=== PATIENT | female | born 1990 | race Caucasian/White ===

== ENCOUNTER 2017-01-24 12:23 | Inpatient (IN) | payer BC ==
[2017-01-24] MEDS ORDERED: Nalbuphine 20 MG/1 ML Amp IVPUSH PRN (14:31)
[2017-01-24] MEDS ORDERED: Sodium Chloride 0.9% 10 ML Syringe FLUSH PRN (14:31)
[2017-01-24] MEDS ORDERED: Ondansetron 4 MG/2 ML SDV IVPUSH PRN ×2 (14:31→15:21)
[2017-01-24] MEDS ORDERED: Oxytocin/Lactated Ringers 10 UNIT/1,000 ML BAG IV SCH (14:45)
--- NOTE | 2017-01-24 14:48 | PCM.PREANE ---
Preanesthetic Assessment - Procedure Proposed Procedure: MAR - Anesthesia/Transfusion/Family Hx Anesthesia History: Prior Anesthesia Without Reaction Family History of Anesthesia Reaction: No Transfusion History: No Prior Transfusion(s) Intubation History: Unknown - Review of Systems General: No Symptoms Pulmonary: No Symptoms Cardiovascular: No Symptoms Gastrointestinal: Other (GERD) Neurological: No Symptoms Other: Reports: None - Physical Assessment NPO Status Date: 01/24/17 NPO Status Time: 14:30 Respiratory Rate: 18 Vital Signs: Last Vital Signs Temp 36.7 C 01/24/17 13:30 Pulse 92 01/24/17 13:30 Resp 18 01/24/17 13:30 BP 120/77 01/24/17 13:30 Pulse Ox Height: 1.55 m Weight: 89.176 kg ASA Class: 2 Mental Status: Alert & Oriented x3 Airway Class: Mallampati = 1 Dentition: Reports: Normal Dentition Thyro-Mental Finger Breadths: 3 ROM/Head Extension: Full Lungs: Clear to Auscultation, Normal Respiratory Effort Cardiovascular: Regular Rate, Regular Rhythm - Allergies Allergies/Adverse Reactions: Allergies Allergy/AdvReac Type Severity Reaction Status Date / Time No Known Allergies Allergy Verified 11/05/16 19:31 - Blood Blood Available: No Product(s) Available: None - Anesthesia Plan Pre-Op Medication Ordered: None - Acknowledgements Anesthesia Type Planned: Epidural Pt an Appropriate Candidate for the Planned Anesthesia: Yes Alternatives and Risks of Anesthesia Discussed w Pt/Guardian: Yes Pt/Guardian Understands and Agrees with Anesthesia Plan: Yes PreAnesthesia Questionnaire Other HEENT History: wears glasses 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: - Past Surgical History HEENT Surgical History: Reports: Oral Surgery, Tonsillectomy - SUBSTANCE USE Smoking Status *Q: Never Smoker Second Hand Smoke Exposure: No Recreational Drug Use History: No - HOME MEDS Home Medications: Home Meds PNV95/Ferrous Fumarate/FA [ Tablet] 1 tab PO DAILY 01/24/17 [History] - CURRENT (IN HOUSE) MEDS Current Meds: Current Medications Lactated Ringer's (Ringers, Lactated) 1,000 mls @ 100 mls/hr IV ASDIRECTED SKIP Oxytocin/Lactated Ringer's (Pitocin In Lr 10 Units/1,000 Ml) 10 unit in 1,000 mls @ 500 mls/hr IV .CONTINUOUS SKIP Nalbuphine HCl (Nubain) 10 mg IVPUSH Q2H PRN PRN Reason: Pain (moderate 4-6) Ondansetron HCl (Zofran) 4 mg IVPUSH Q4H PRN PRN Reason: Nausea/Vomiting Sodium Chloride (Saline Flush) 10 ml FLUSH ASDIRECTED PRN PRN Reason: Keep Vein Open
[2017-01-24] MEDS ORDERED: ePHEDrine 50 MG/ML SDV IVPUSH PRN (15:21)
[2017-01-24] MEDS ORDERED: diphenhydrAMINE 50 MG/ML SDV IVPUSH PRN (15:21)
[2017-01-24] MEDS ORDERED: fentaNYL 100 MCG/2 ML SDV EPIDUR PRN (15:21)
[2017-01-24] MEDS: Lactated Ringers 1,000 ML IV SCH ×3 (15:56→17:55)
[2017-01-24] MEDS: Bupivacaine/fentaNYL/NS 100 ML Bag EPIDUR SCH ×2 (16:51→22:54)
[2017-01-25] MEDS: Bupivacaine/fentaNYL/NS 100 ML Bag EPIDUR SCH (08:15)
[2017-01-25] MEDS ORDERED: Morphine PF 1 MG/ML Amp ONE (15:04)
[2017-01-25] MEDS ORDERED: Bupivacaine 0.5% 30 ML SDV ONE (15:04)
[2017-01-25] MEDS ORDERED: Citric Acid/Sodium Citrate Solution 30 ML Cup ONE (15:26)
[2017-01-25] MEDS ORDERED: Metoclopramide 10 MG/2 ML SDV ONE (15:26)
[2017-01-25] MEDS ORDERED: Metoclopramide 10 MG/2 ML SDV IVPUSH ONE (15:30)
[2017-01-25] MEDS ORDERED: ceFAZolin 2 GM in Premix Bag 1 BAG IV ONE (15:30)
[2017-01-25] MEDS ORDERED: Citric Acid/Sodium Citrate Solution 30 ML Cup PO ONE (15:30)
[2017-01-25] MEDS ORDERED: Oxytocin/Lactated Ringers 10 UNIT/1,000 ML BAG IV SCH (15:30)
[2017-01-25] MEDS ORDERED: Phenylephrine 1% 10 MG/ML SDV ONE (15:33)
[2017-01-25] MEDS ORDERED: Ketorolac 30 MG/ML SDV ONE (15:33)
[2017-01-25] MEDS ORDERED: Lidocaine 2% with EPINEPHrine 1:200,000 20 ML SDV ONE (15:33)
[2017-01-25] MEDS ORDERED: Lactated Ringers 1,000 ML ONE (15:33)
[2017-01-25] MEDS ORDERED: Oxytocin 10 Units/1 ML SDV ONE (15:33)
[2017-01-25] MEDS ORDERED: fentaNYL 100 MCG/2 ML SDV ONE (15:33)
[2017-01-25] MEDS ORDERED: ceFAZolin 1 GM Vial ONE (15:33)
[2017-01-25] MEDS ORDERED: Ondansetron 4 MG/2 ML SDV ONE (15:33)
[2017-01-25] MEDS: Lactated Ringers 1,000 ML IV SCH ×2 (15:35→21:14)
[2017-01-25] MEDS ORDERED: Ondansetron 4 MG/2 ML SDV IVPUSH PRN (15:59)
[2017-01-25] MEDS ORDERED: Meperidine PF 50 MG/ML Syringe IVPUSH PRN (15:59)
[2017-01-25] MEDS ORDERED: HYDROmorphone 0.5 MG/0.5 ML Syringe IVPUSH PRN (15:59)
[2017-01-25] MEDS ORDERED: ePHEDrine 50 MG/ML SDV IVPUSH PRN ×2 (15:59→17:22)
[2017-01-25] MEDS ORDERED: fentaNYL 100 MCG/2 ML SDV IVPUSH PRN (15:59)
[2017-01-25] MEDS ORDERED: diphenhydrAMINE 50 MG/ML SDV IVPUSH PRN ×2 (15:59→17:22)
[2017-01-25] MEDS ORDERED: Phenylephrine 1 MG in Sodium Chloride 0.9% 10 ML IV SCH (16:00)
--- NOTE | 2017-01-25 16:40 | PCM.LDHP ---
L&D History of Present Illness - General Date of Service: 01/24/17 Admit Problem/Dx: Patient Status Order with Admit Dx/Problem 01/24/17 14:31 Patient Status [ADT] Routine Admission Diagnosis/Problem Admission Diagnosis/Problem Source of Information: Patient - History of Present Illness Introduction:: 27 year old female at 40 1/7 here with SROM Pain Score: 10 Improves with: Reports: None Worsens with: Reports: None Associated Symptoms: Reports: N - Related Data Allergies/Adverse Reactions: Allergies Allergy/AdvReac Type Severity Reaction Status Date / Time No Known Allergies Allergy Verified 11/05/16 19:31 Home Medications: Home Meds PNV95/Ferrous Fumarate/FA [ Tablet] 1 tab PO DAILY 01/24/17 [History] Past Medical History 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 HEENT History: wears 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: - Past Surgical History HEENT Surgical History: Reports: Oral Surgery, Tonsillectomy Social & Family History - Family History Family Medical History: Noncontributory - Tobacco Use Smoking Status *Q: Never Smoker Second Hand Smoke Exposure: No - Recreational Drug Use Recreational Drug Use: No H&P Review of Systems - Review of Systems: Review Of Systems: See Below General: Reports: No Symptoms HEENT: Reports: No Symptoms Pulmonary: Reports: No Symptoms Cardiovascular: Reports: No Symptoms Gastrointestinal: Reports: No Symptoms Genitourinary: Reports: No Symptoms Musculoskeletal: Reports: No Symptoms Skin: Reports: No Symptoms Psychiatric: Reports: No Symptoms Neurological: Reports: No Symptoms Hematologic/Lymphatic: Reports: No Symptoms Immunologic: Reports: No Symptoms L&D Exam - Exam Exam: See Below - Vital Signs Vital Signs: Last Vital Signs Temp 36.7 C 01/24/17 13:30 Pulse 92 01/24/17 13:30 Resp 18 01/24/17 14:48 BP 120/77 01/24/17 13:30 Pulse Ox Weight: 89.176 kg - OB Specific Contraction Intensity: Moderate Movement: Active Heart Rate (FHR) Variability: Moderate (6-25 bmp) Presentation: Vertex - Moon Score Moon Score Cervix Position: Midposition Moon Score Consistency: Soft Moon Score Effacement: 51-70% Moon Score Dilation: 3-4 cm Moon Score Infant's Station: -2 Moon Score Total: 8 - Exam General: Alert, Oriented HEENT: PERRLA, Conjunctiva Clear, EACs Clear, EOMI, Hearing Intact, Mucosa Moist & [place], Nares Patent, Normal Nasal Septum, Posterior Pharynx Clear, TMs Clear Neck: Supple, Trachea Midline Lungs: Clear to Auscultation, Normal Respiratory Effort Cardiovascular: Regular Rate, Regular Rhythm GI/Abdominal Exam: Normal Bowel Sounds, Soft, Non-Tender, No Organomegaly, No Distention, No Abnormal Bruit, No Mass, Pelvis Stable Rectal Exam: Normal Exam, Normal Rectal Tone Genitourinary: Normal external exam, Normal bimanual exam, Normal speculum exam Back Exam: Normal Inspection, Full Range of Motion Extremities: Normal Inspection, Normal Range of Motion, Non-Tender, No Pedal Edema, Normal Capillary Refill Skin: Warm, Dry, Intact Neurological: Cranial Nerves Intact, Reflexes Equal Bilateral Psychiatric: Alert, Normal Affect, Normal Mood - Patient Data Lab Results Last 24 hrs: Laboratory Results - last 24 hr 01/24/17 Range/Units 15:00 WBC 15.64 H (3.98-10.04) K/mm3 RBC 4.49 (3.98-5.22) M/mm3 Hgb 13.3 (11.2-15.7) gm/L Hct 39.2 (34.1-44.9) % MCV 87.3 (79.4-94.8) fl MCH 29.6 (25.6-32.2) pg MCHC 33.9 (32.2-35.5) g/dl RDW Std Deviation 43.6 (36.4-46.3) fL Plt Count 281 (182-369) K/mm3 MPV 9.9 (9.4-12.3) fl Neut % (Auto) 78.6 H (34.0-71.1) % Lymph % (Auto) 12.4 L (19.3-51.7) % Mineral % (Auto) 6.5 (4.7-12.5) % Eos % (Auto) 2.0 (0.7-5.8) Baso % (Auto) 0.1 (0.1-1.2) % Neut # (Auto) 12.28 H (1.56-6.13) K/mm3 Lymph # (Auto) 1.94 (1.18-3.74) K/mm3 Mineral # (Auto) 1.02 H (0.24-0.36) K/mm3 Eos # (Auto) 0.31 (0.04-0.36) K/mm3 Baso # (Auto) 0.02 (0.01-0.08) K/mm3 Result Diagrams: 01/24/17 15:00 Problem List Initiated/Reviewed/Updated: Yes Orders Last 24hrs: Active Orders 24 hr Category Date Time Status Patient Status [ADT] Routine ADT 01/24/17 14:31 Active Activity as Tolerated [RC] PFP Care 01/24/17 14:31 Active Communication Order [RC] ASDIRECTED Care 01/24/17 14:31 Active Heart Tones [RC] ASDIRECTED Care 01/24/17 14:32 Active Notify Provider [RC] PFP Care 01/24/17 14:31 Active Notify Provider [RC] PRN Care 01/24/17 14:31 Active Peripheral IV Care [RC] . DIRECTED Care 01/24/17 14:32 Active Pump Management, Intrathecal [RC] ASDIRECTED Care 01/24/17 14:31 Active Urinary Catheter Assessment [RC] ASDIRECTED Care 01/24/17 14:31 Active Vital Signs [RC] PER UNIT ROUTINE Care 01/24/17 14:31 Active Bupivacaine/fentaNYL/NS [fentaNYL/Bupivacaine/NS 2 MCG- Med 01/24/17 15:30 Active 0.125% 100 ML] 100 ml EPIDUR ASDIRECTED Lactated Ringers [Ringers, Lactated] 1,000 ml Med 01/24/17 14:45 Active IV ASDIRECTED Nalbuphine [Nubain] Med 01/24/17 14:31 Active 10 mg IVPUSH Q2H PRN Ondansetron [Zofran] Med 01/24/17 15:21 Active 4 mg IVPUSH ONETIME PRN Ondansetron [Zofran] Med 01/24/17 14:31 Active 4 mg IVPUSH Q4H PRN Oxytocin [Pitocin] 10 unit Med 01/24/17 19:15 Active Lactated Ringers [Ringers, Lactated] 1,000 ml IV TITRATE Oxytocin/Lactated Ringers [Pitocin in LR 10 Units/1,000 Med 01/24/17 14:45 Active ML] 10 unit in 1,000 ml IV .CONTINUOUS Sodium Chloride 0.9% [Saline Flush] Med 01/24/17 14:31 Active 10 ml FLUSH ASDIRECTED PRN diphenhydrAMINE [Benadryl] Med 01/24/17 15:21 Active 25 mg IVPUSH Q6H PRN ePHEDrine [ePHEDrine Sulfate] Med 01/24/17 15:21 Active 5 mg IVPUSH ASDIRECTED PRN fentaNYL [Sublimaze] Med 01/24/17 15:21 Active 100 mcg EPIDUR Q3H PRN Electronic Heart Tones Ext w TOCO [WOMSER] Oth 01/24/17 14:31 Ordered Routine Electronic Heart Tones Internal [WOMSER] Per Unit Oth 01/24/17 14:31 Ordered Routine Peripheral IV Insertion Adult [OM.PC] Routine Ot 01/24/17 14:31 Ordered Resuscitation Status Routine Resus Stat 01/24/17 14:31 Ordered Medication Orders Diphenhydramine HCl (Benadryl) 25 mg IVPUSH Q6H PRN PRN Reason: Pruritis Ephedrine Sulfate (Ephedrine Sulfate) 5 mg IVPUSH ASDIRECTED PRN PRN Reason: Hypotension Fentanyl (Sublimaze) 100 mcg EPIDUR Q3H PRN PRN Reason: Pain Last Admin: 01/24/17 16:51 Dose: 100 mcg Fentanyl/Bupivacaine HCl (Fentanyl/Bupivacaine/Ns 2 Mcg-0.125% 100 Ml) 100 ml EPIDUR ASDIRECTED [facility] Last Admin: 01/25/17 08:15 Dose: 100 ml Admin: 01/24/17 22:54 Dose: 100 ml Admin: 01/24/17 16:51 Dose: 100 ml Lactated Ringer's (Ringers, Lactated) 1,000 mls @ 100 mls/hr IV ASDIRECTED [facility] Last Admin: 01/24/17 17:55 Dose: 999 mls/hr Infusion: 01/24/17 17:39 Dose: 999 mls/hr Admin: 01/24/17 16:38 Dose: 999 mls/hr Infusion: 01/24/17 16:38 Dose: 999 mls/hr Admin: 01/24/17 15:56 Dose: 999 mls/hr Oxytocin/Lactated Ringer's (Pitocin In Lr 10 Units/1,000 Ml) 10 unit in 1,000 mls @ 500 mls/hr IV .CONTINUOUS SKIP Oxytocin 10 unit/ Lactated (Ringer's) 1,001 mls @ 12.01 mls/hr IV TITRATE SKIP; 2 MUNITS/MIN PRN Reason: Protocol Last Titration: 01/25/17 13:01 Dose: 10 munits/min, 60.06 mls/hr Titration: 01/25/17 11:13 Dose: 9 munits/min, 54.05 mls/hr Titration: 01/25/17 09:37 Dose: 7 munits/min, 42.04 mls/hr Titration: 01/25/17 08:16 Dose: 5 munits/min, 30.03 mls/hr Titration: 01/24/17 19:53 Dose: 4 munits/min, 24.02 mls/hr Admin: 01/24/17 19:00 Dose: 2 munits/min, 12.01 mls/hr Nalbuphine HCl (Nubain) 10 mg IVPUSH Q2H PRN PRN Reason: Pain (moderate 4-6) Ondansetron HCl (Zofran) 4 mg IVPUSH Q4H PRN PRN Reason: Nausea/Vomiting Ondansetron HCl (Zofran) 4 mg IVPUSH ONETIME PRN PRN Reason: Nausea/Vomiting Sodium Chloride (Saline Flush) 10 ml FLUSH ASDIRECTED PRN PRN Reason: Keep Vein Open Assessment/Plan Comment:: Term labor. Augment as needed with pitocin. Anticipate unless otherwise indicated. AROM of forebag.
--- NOTE | 2017-01-25 16:40 | PCM.PNLD ---
Labor Progress Note - VS & Meds Vital Signs: Last Vital Signs Temp 36.7 C 01/24/17 13:30 Pulse 92 01/24/17 13:30 Resp 18 01/24/17 14:48 BP 120/77 01/24/17 13:30 Pulse Ox Active Medications: Current Medications Diphenhydramine HCl (Benadryl) 25 mg IVPUSH Q6H PRN PRN Reason: Pruritis Ephedrine Sulfate (Ephedrine Sulfate) 5 mg IVPUSH ASDIRECTED PRN PRN Reason: Hypotension Fentanyl (Sublimaze) 100 mcg EPIDUR Q3H PRN PRN Reason: Pain Last Admin: 01/24/17 16:51 Dose: 100 mcg Fentanyl/Bupivacaine HCl (Fentanyl/Bupivacaine/Ns 2 Mcg-0.125% 100 Ml) 100 ml EPIDUR ASDIRECTED SKIP Last Admin: 01/25/17 08:15 Dose: 100 ml Lactated Ringer's (Ringers, Lactated) 1,000 mls @ 100 mls/hr IV ASDIRECTED SKIP Last Admin: 01/24/17 17:55 Dose: 999 mls/hr Oxytocin/Lactated Ringer's (Pitocin In Lr 10 Units/1,000 Ml) 10 unit in 1,000 mls @ 500 mls/hr IV .CONTINUOUS SKIP Oxytocin 10 unit/ Lactated (Ringer's) 1,001 mls @ 12.01 mls/hr IV TITRATE SKIP; 2 MUNITS/MIN PRN Reason: Protocol Last Titration: 01/25/17 13:01 Dose: 10 munits/min, 60.06 mls/hr Nalbuphine HCl (Nubain) 10 mg IVPUSH Q2H PRN PRN Reason: Pain (moderate 4-6) Ondansetron HCl (Zofran) 4 mg IVPUSH Q4H PRN PRN Reason: Nausea/Vomiting Ondansetron HCl (Zofran) 4 mg IVPUSH ONETIME PRN PRN Reason: Nausea/Vomiting Sodium Chloride (Saline Flush) 10 ml FLUSH ASDIRECTED PRN PRN Reason: Keep Vein Open - Uterine Contractions Contraction Intensity: Moderate - Monitoring Monitor Mode: External Ultrasound Heart Rate (FHR) Variability: Moderate (6-25 bmp) Strip Review: Category I - Vaginal Exam Dilation (cm): 4 Effacement (Percent): 50 Station: -3 Cervical Position: Midposition - Labor Progress (Free Text) Labor Progress: Term labor. Progressing somewhat slowly. Continue to augment as staffing allows.
--- NOTE | 2017-01-25 16:41 | PCM.SN ---
- Free Text/Narrative Note: Pushing since noon. Significant external swelling. Minimal desent in last 1 hour. Proceed with .
--- NOTE | 2017-01-25 16:42 | PCM.POSTAN ---
POST ANESTHESIA ASSESSMENT - MENTAL STATUS Mental Status: Alert - VITAL SIGNS Pulse Rate: 88 SaO2: 97 Resp Rate: 20 Blood Pressure: 99/51 Temperature: 100.3 C - RESPIRATORY Respiratory Status: Respiratory Rate WNL, Airway Patent, O2 Saturation Stable - CARDIOVASCULAR CV Status: Pulse Rate WNL, Blood Pressure Stable - GASTROINTESTINAL GI Status: No Symptoms - POST OP HYDRATION Hydration Status: Adequate & Stable
--- NOTE | 2017-01-25 16:54 | PCM.OPNOTE ---
- General Post-Op/Procedure Note Date of Surgery/Procedure: 01/25/17 Operative Procedure(s): primary Findings: viable male, 9/9 APGARS, 7#5OZ at 1602 Pre Op Diagnosis: failure to descend Post-Op Diagnosis: Same Anesthesia Technique: Epidural Primary Surgeon: Joselyn Hutchison Anesthesia Provider: Shoshana Valenzuela Towboat Operator: Bri Kowalski Fluid Replacement, Intraop: 800 Output, Urine Amount: 25 EBL in mLs: 900 Complications: None Condition: Good Free Text/Narrative:: Intake & Output 01/25/17 01/25/17 01/25/17 06:59 14:59 22:59 Intake Total 1500 Balance 1500 The patient was taken to the operating room where epidural anesthesia was dosed to surgical levels without difficulty. The patient was prepped and draped in the usual sterile fashion in the dorsal supine position with a leftward tilt. A Pfannenstiel skin incision was made with the scalpel and carried through to the underlying layer of fascia. The fascia was incised in the midline and extended laterally using Escalona scissors. Moon clamps were used to elevate the superior aspect of the fascial incision, which was elevated, and the underlying rectus muscles were dissected off bluntly and using Escalona scissors. Attention was then turned to the inferior aspect of the fascial incision, which in similar fashion was grasped with Moon clamps, elevated, and the underlying rectus muscles were dissected off bluntly and using the escalona. The rectus muscles were dissected in the midline. The peritoneum was entered bluntly; this incision was extended superiorly and inferiorly with good visualization of the bladder. The bladder blade was inserted. The vesicouterine peritoneum was identified and entered sharply using Metzenbaum scissors. This incision was extended laterally and the bladder flap was created digitally. The bladder blade was reinserted. The lower uterine segment was incised in a transverse fashion using the scalpel and with digital traction. Clear fluid was noted. The infant was subsequently delivered by flexing the head to the incision. Body and shoulders followed without difficulty. The cord was clamped and cut. The infant was subsequently handed to the awaiting hematology supervisor whose presence had been requested.. The placenta was delivered spontaneously intact with a three-vessel cord noted. The uterus was exteriorized and cleared of all clots and debris. The uterine incision was repaired in 2 layers using 0 monocryl. Hemostasis was visualized. Hemostasis was visualized bilaterally. The uterus was returned to the abdomen. The uterine incision was reexamined and it was noted to be hemostatic. The pelvis was copiously irrigated. The fascia was closed with 1 PDS suture, and the skin was closed with 3-0 monocryl. Sponge, lap, and instrument counts were correct x2. The patient was stable at the completion of the procedure and was subsequently transferred to the recovery room in stable condition.
[2017-01-25] MEDS ORDERED: Lanolin 100% Cream 7 GM Tube TOP PRN (17:22)
[2017-01-25] MEDS ORDERED: Dextrose 5%-Lactated Ringers 1,000 ML IV SCH (17:22)
[2017-01-25] MEDS ORDERED: Naloxone 0.4 MG/ML SDV IVPUSH PRN (17:22)
[2017-01-25] MEDS ORDERED: Ketorolac 30 MG/ML SDV IVPUSH SCH (17:22)
[2017-01-25] MEDS ORDERED: Docusate Sodium 100 MG Cap PO PRN (17:22)
[2017-01-25] MEDS: Acetaminophen/oxyCODONE 325-5 MG Tab PO PRN (19:50)
[2017-01-25] MEDS: Ketorolac 30 MG/ML SDV IVPUSH SCH (21:56)
[2017-01-25] MEDS ORDERED: Bupivacaine 0.25% 10 ML SDV ONE (22:22)
[2017-01-26] MEDS: Acetaminophen/oxyCODONE 325-5 MG Tab PO PRN ×6 (02:51→23:55)
[2017-01-26] MEDS: Ketorolac 30 MG/ML SDV IVPUSH SCH ×2 (05:11→11:52)
[2017-01-26] MEDS ORDERED: Simethicone 80 MG Tab.Chew PO PRN (08:10)
[2017-01-26] MEDS: Ibuprofen 600 MG Tab PO PRN ×2 (11:57→18:43)
--- NOTE | 2017-01-26 14:43 | PCM48HPAN ---
Post Anesthesia Note - EVALUATION WITHIN 48HRS OF ANESTHETIC Vital Signs in Normal Range: Yes Patient Participated in Evaluation: Yes Respiratory Function Stable: Yes Airway Patent: Yes Cardiovascular Function Stable: Yes Hydration Status Stable: Yes Pain Control Satisfactory: Yes Nausea and Vomiting Control Satisfactory: Yes Mental Status Recovered: Yes
[2017-01-27] MEDS: Ibuprofen 600 MG Tab PO PRN ×2 (03:52→11:03)
[2017-01-27] MEDS: Acetaminophen/oxyCODONE 325-5 MG Tab PO PRN ×2 (06:15→11:56)
[2017-01-27 12:25] VITALS: BP 117/64
--- NOTE | 2017-02-01 09:04 | PCM.DCSUM1 ---
Discharge Summary - Discharge Data Discharge Date: 01/26/17 Discharge Disposition: Home, Self-Care 01 Condition: Good - Patient Summary/Data Operative Procedure(s) Performed: primary - Patient Instructions Diet: Usual Diet as Tolerated Activity: No Strenuous Activities Driving: May Drive Today Showering/Bathing: May Shower Wound/Incision Care: Keep Operative Site/Wound Site Clean and Dry Notify Provider of: Fever, Increased Pain, Swelling and Redness, Drainage, Nausea and/or Vomiting - Discharge Plan Prescriptions/Med Rec: Acetaminophen/oxyCODONE [Percocet 325-5 MG] 1 - 2 tab PO Q4H PRN #30 tablet PRN Reason: Pain Home Medications: Home Meds PNV95/Ferrous Fumarate/FA [ Tablet] 1 tab PO DAILY 01/24/17 [History] Acetaminophen/oxyCODONE [Percocet 325-5 MG] 1 - 2 tab PO Q4H PRN #30 tablet [Rx] Docusate Sodium [Colace] 100 mg PO Q12H PRN cap 01/27/17 [Rx] Ibuprofen [IJD: Ibuprofen] 600 mg PO Q6H PRN tablet 01/27/17 [Rx] Lanolin [Lansinoh HPA] 1 applic TOP ASDIRECTED PRN tube 01/27/17 [Rx] Patient Handouts: Home Care Instructions for Mom Referrals: Joselyn Hutchison MD [Primary Care Provider] - (2-3 weeks) - General Info Date of Service: 01/26/17 Functional Status: Reports: Pain Controlled - Review of Systems General: Reports: No Symptoms HEENT: Reports: No Symptoms Pulmonary: Reports: No Symptoms Cardiovascular: Reports: No Symptoms Gastrointestinal: Reports: No Symptoms Genitourinary: Reports: No Symptoms Musculoskeletal: Reports: No Symptoms Skin: Reports: No Symptoms Neurological: Reports: No Symptoms Psychiatric: Reports: No Symptoms - Patient Data Vitals - Most Recent: Last Vital Signs Temp 36.9 C 01/27/17 12:07 Pulse 100 01/27/17 12:07 Resp 19 01/27/17 12:07 BP 117/64 01/27/17 12:07 Pulse Ox 95 01/27/17 12:07 Weight - Most Recent: 89.176 kg I&O - Last 24 hours: Intake & Output 01/31/17 02/01/1702/01/17 22:59 06:59 14:59 Intake Total 800 Output Total 25 Balance 775 Med Orders - Current: Current Medications Discontinued Medications Bupivacaine HCl (Marcaine 0.5%) Confirm Administered Dose 30 ml .ROUTE .STK-MED ONE Stop: 01/25/17 15:05 Last Admin: 01/25/17 15:58 Dose: 20 ml Bupivacaine HCl (Sensorcaine-Mpf 0.25%) 10 ml .ROUTE .STK-MED ONE Stop: 01/25/17 22:23 Cefazolin Sodium (Ancef) Confirm Administered Dose 2 gm .ROUTE .STK-MED ONE Stop: 01/25/17 15:34 Citric Acid/Sodium Citrate (Bicitra Solution) Confirm Administered Dose 30 ml .ROUTE .STK-MED ONE Stop: 01/25/17 15:27 Last Admin: 01/25/17 15:30 Dose: 30 ml Citric Acid/Sodium Citrate (Bicitra Solution) 30 ml PO ONETIME ONE Stop: 01/25/17 15:31 Last Admin: 01/26/17 15:22 Dose: Not Given Diphenhydramine HCl (Benadryl) 25 mg IVPUSH Q6H PRN PRN Reason: Pruritis Diphenhydramine HCl (Benadryl) 25 mg IVPUSH Q6H PRN PRN Reason: pruritis Diphenhydramine HCl (Benadryl) 25 mg IVPUSH Q6H PRN PRN Reason: Itching or Nausea Docusate Sodium (Colace) 100 mg PO Q12H PRN PRN Reason: Constipation Last Admin: 01/26/17 02:52 Dose: 100 mg Emollient Ointment (Lansinoh Hpa) 0 gm TOP ASDIRECTED PRN PRN Reason: Sore Nipples Last Admin: 01/25/17 18:18 Dose: 1 applic Ephedrine Sulfate (Ephedrine Sulfate) 5 mg IVPUSH ASDIRECTED PRN PRN Reason: Hypotension Ephedrine Sulfate (Ephedrine Sulfate) 5 mg IVPUSH SEECOMMENT PRN PRN Reason: Other Last Admin: 01/25/17 21:01 Dose: 5 mg Fentanyl (Sublimaze) 100 mcg EPIDUR Q3H PRN PRN Reason: Pain Last Admin: 01/24/17 16:51 Dose: 100 mcg Fentanyl (Sublimaze) Confirm Administered Dose 100 mcg .ROUTE .STK-MED ONE Stop: 01/25/17 15:34 Fentanyl (Sublimaze) 50 mcg IVPUSH Q5M PRN PRN Reason: Pain Fentanyl/Bupivacaine HCl (Fentanyl/Bupivacaine/Ns 2 Mcg-0.125% 100 Ml) 100 ml EPIDUR ASDIRECTED [facility] Last Admin: 01/25/17 08:15 Dose: 100 ml Hydromorphone HCl (Dilaudid) 0.5 mg IVPUSH Q15M PRN PRN Reason: severe pain Lactated Ringer's (Ringers, Lactated) 1,000 mls @ 100 mls/hr IV ASDIRECTED [facility] Last Admin: 01/25/17 21:14 Dose: 999 mls/hr Oxytocin/Lactated Ringer's (Pitocin In Lr 10 Units/1,000 Ml) 10 unit in 1,000 mls @ 500 mls/hr IV .CONTINUOUS [facility] Oxytocin 10 unit/ Lactated (Ringer's) 1,001 mls @ 12.01 mls/hr IV TITRATE SKIP; 2 MUNITS/MIN PRN Reason: Protocol Last Titration: 01/25/17 13:01 Dose: 10 munits/min, 60.06 mls/hr Lactated Ringer's (Ringers, Lactated) Confirm Administered Dose 1,000 mls @ as directed .ROUTE .[facility] ONE Stop: 01/25/17 15:34 Cefazolin Sodium/Dextrose 2 gm (/ Premix) 50 mls @ 100 mls/hr IV ONETIME ONE Stop: 01/25/17 15:59 Last Admin: 01/26/17 15:21 Dose: Not Given Oxytocin/Lactated Ringer's (Pitocin In Lr 10 Units/1,000 Ml) 10 unit in 1,000 mls @ 100 mls/hr IV ASDIRECTED [facility] PRN Reason: Protocol Phenylephrine HCl 1 mg/ Sodium (Chloride) 10.1 mls @ 1 mls/sec IV TITRATE SKIP PRN Reason: Protocol Dextrose/Lactated Ringer's (Dextrose 5%-Lactated Ringers) 1,000 mls @ 125 mls/ hr IV ASDIRECTED [facility] Stop: 01/26/17 01:21 Last Admin: 01/25/17 18:03 Dose: 125 mls/hr Ibuprofen (Motrin) 600 mg PO Q6H PRN PRN Reason: mild pain or fever Last Admin: 01/27/17 11:03 Dose: 600 mg Ketorolac Tromethamine (Toradol) Confirm Administered Dose 30 mg .ROUTE .STK- MED ONE Stop: 01/25/17 15:34 Ketorolac Tromethamine (Toradol) 30 mg IVPUSH Q6H [facility] Stop: 01/26/17 05:23 Last Admin: 01/26/17 15:20 Dose: Not Given Ketorolac Tromethamine (Toradol) 30 mg IVPUSH Q6H [facility] Stop: 01/26/17 10:01 Last Admin: 01/26/17 11:52 Dose: Not Given Lidocaine/Epinephrine (Xylocaine-Mpf 2%-Epi 1:200,000) Confirm Administered Dose 20 ml .ROUTE .STK-MED ONE Stop: 01/25/17 15:34 Meperidine HCl (Demerol) 12.5 mg IVPUSH ONETIME PRN PRN Reason: shivering Metoclopramide HCl (Reglan) Confirm Administered Dose 10 mg .ROUTE .STK-MED ONE Stop: 01/25/17 15:27 Last Admin: 01/25/17 15:30 Dose: 10 mg Metoclopramide HCl (Reglan) 10 mg IVPUSH ONETIME ONE Stop: 01/25/17 15:31 Last Admin: 01/26/17 15:22 Dose: Not Given Morphine Sulfate (Duramorph Pf) Confirm Administered Dose 1 mg .ROUTE .STK-MED ONE Stop: 01/25/17 15:05 Nalbuphine HCl (Nubain) 10 mg IVPUSH Q2H PRN PRN Reason: Pain (moderate 4-6) Naloxone HCl (Narcan) 0.1 mg IVPUSH SEECOMMENT PRN PRN Reason: Respiratory Depression Ondansetron HCl (Zofran) 4 mg IVPUSH Q4H PRN PRN Reason: Nausea/Vomiting Ondansetron HCl (Zofran) 4 mg IVPUSH ONETIME PRN PRN Reason: Nausea/Vomiting Ondansetron HCl (Zofran) Confirm Administered Dose 4 mg .ROUTE .STK-MED ONE Stop: 01/25/17 15:34 Ondansetron HCl (Zofran) 4 mg IVPUSH ONETIME PRN PRN Reason: Nausea/Vomiting Oxycodone/Acetaminophen (Percocet 325-5 Mg) 1 - 2 tab PO Q4H PRN PRN Reason: Pain Last Admin: 01/27/17 11:56 Dose: 2 tab Oxytocin (Pitocin) Confirm Administered Dose 10 unit .ROUTE .STK-MED ONE Stop: 01/25/17 15:34 Phenylephrine HCl (Art-Synephrine) Confirm Administered Dose 10 mg .ROUTE .STK- MED ONE Stop: 01/25/17 15:34 Simethicone (Simethicone) 80 mg PO Q4H PRN PRN Reason: gas pains Last Admin: 01/26/17 11:45 Dose: 80 mg Sodium Chloride (Saline Flush) 10 ml FLUSH ASDIRECTED PRN PRN Reason: Keep Vein Open - Exam General: Reports: Alert, Oriented HEENT: Reports: Pupils Equal, Pupils Reactive, EOMI, Mucous Membr. Moist/[place] Neck: Reports: Supple Lungs: Reports: Clear to Auscultation, Normal Respiratory Effort Cardiovascular: Reports: Regular Rate, Regular Rhythm GI/Abdominal Exam: Normal Bowel Sounds, Soft, Non-Tender, No Organomegaly, No Distention, No Abnormal Bruit, No Mass, Pelvis Stable (Female) Exam: Normal External Exam, Normal Speculum Exam, Normal Bimanual Exam Back Exam: Reports: Normal Inspection, Full Range of Motion Extremities: Normal Inspection, Normal Range of Motion, Non-Tender, No Pedal Edema, Normal Capillary Refill Skin: Reports: Warm, Dry, Intact Wound/Incisions: Reports: Healing Well Neurological: Reports: No New Focal Deficit Psy/Mental Status: Reports: Alert, Normal Affect, Normal Mood *Q Meaningful Use (DIS) - VTE *Q VTE Criteria *Q: - Stroke *Q Stroke Criteria *Q: - AMI *Q AMI Criteria *Q:
== END 2017-01-27 13:00 | disposition home or self-care (01) | DRG 540 ==
LOC: JD.OBCHECK 12:23 → JD.OB 12:25 → JD.OBCHECK 14:30 → JD.OB 14:31 → OBSVTOIN 01-25 16:02
PROVIDERS: ADMIT Obstetrics & Gynecology; ATTEND Obstetrics & Gynecology
PROC: 10D00Z1 Extraction of Products of Conception, Low, Open Approach (ICD-10-PCS; principal; 2017-01-25)
DX: O42.92 Full-term premature rupture of membranes, unspecified as to length of time between rupture and onset of labor (principal); O62.0 Primary inadequate contractions; O32.4XX0 Maternal care for high head at term, not applicable or unspecified; Z3A.40 40 weeks gestation of pregnancy; Z37.0 Single live birth
CPT/HCPCS: 01961; 36415; 51702; 85025; A9270-GY; J0690; J1885; J2274; J2370; J2405; J2590; J2765; J3010; J7042; J7120

== ENCOUNTER 2019-04-24 05:14 | Inpatient (IN) | payer BC, OTHER ==
[2019-04-24] MEDS ORDERED: Sodium Chloride 0.9% 10 ML Syringe FLUSH PRN (05:30)
[2019-04-24] MEDS: Lactated Ringers 1,000 ML IV SCH ×2 (05:45→06:46)
[2019-04-24] MEDS ORDERED: Metoclopramide 10 MG/2 ML SDV IVPUSH ONE (06:00)
[2019-04-24] MEDS ORDERED: Citric Acid/Sodium Citrate Solution 30 ML Cup PO ONE (06:00)
[2019-04-24] MEDS ORDERED: ceFAZolin 2 GM in Premix Bag 1 BAG IV ONE (06:30)
[2019-04-24] MEDS ORDERED: Oxytocin/Lactated Ringers 10 UNIT/1,000 ML BAG IV SCH (07:00)
[2019-04-24] MEDS ORDERED: Bupivacaine 0.5% 30 ML SDV ONE (07:14)
[2019-04-24] MEDS ORDERED: ceFAZolin 1 GM Vial ONE (07:16)
[2019-04-24] MEDS ORDERED: Oxytocin 10 Units/1 ML SDV ONE (07:16)
[2019-04-24] MEDS ORDERED: Lactated Ringers 2,000 ML ONE (07:16)
[2019-04-24] MEDS ORDERED: Ketorolac 30 MG/ML SDV ONE (07:16)
[2019-04-24] MEDS ORDERED: Ondansetron 4 MG/2 ML SDV ONE (07:16)
[2019-04-24] MEDS ORDERED: Morphine PF 1 MG/ML Amp ONE (07:17)
[2019-04-24] MEDS ORDERED: diphenhydrAMINE 50 MG/ML SDV IVPUSH PRN ×2 (08:32→09:50)
[2019-04-24] MEDS ORDERED: Ondansetron 4 MG/2 ML SDV IVPUSH PRN (08:32)
[2019-04-24] MEDS ORDERED: fentaNYL 100 MCG/2 ML SDV IVPUSH PRN (08:32)
--- NOTE | 2019-04-24 08:50 | PCM.POSTAN ---
POST ANESTHESIA ASSESSMENT - MENTAL STATUS Mental Status: Alert, Oriented - VITAL SIGNS Vital Signs: Last Vital Signs Temp 36.5 C 04/24/19 06:16 Pulse 78 04/24/19 06:16 Resp 14 04/24/19 06:16 BP 99/59 L 04/24/19 06:16 Pulse Ox 97 04/24/19 06:16 0840 109/44 69 16 99% 97.3F - RESPIRATORY Respiratory Status: Respiratory Rate WNL, Airway Patent, O2 Saturation Stable, Supplemental Oxygen - CARDIOVASCULAR CV Status: Pulse Rate WNL, Blood Pressure Stable - GASTROINTESTINAL GI Status: No Symptoms - PAIN Pain Score: 0 - POST OP HYDRATION Hydration Status: Adequate & Stable
--- NOTE | 2019-04-24 08:52 | PCM.PREANE ---
Preanesthetic Assessment - Anesthesia/Transfusion/Family Hx Anesthesia History: Prior Anesthesia Without Reaction Family History of Anesthesia Reaction: No Transfusion History: No Prior Transfusion(s) Intubation History: Unknown - Review of Systems General: No Symptoms Pulmonary: No Symptoms Cardiovascular: No Symptoms Gastrointestinal: No Symptoms Neurological: No Symptoms Other: Reports: None - Physical Assessment NPO Status Date: 04/23/19 NPO Status Time: 21:30 Vital Signs: Last Vital Signs Temp 36.5 C 04/24/19 06:16 Pulse 78 04/24/19 06:16 Resp 14 04/24/19 06:16 BP 99/59 L 04/24/19 06:16 Pulse Ox 97 04/24/19 06:16 Height: 1.55 m Weight: 78.925 kg ASA Class: 2 Mental Status: Alert & Oriented x3 Airway Class: Mallampati = 1 Dentition: Reports: Normal Dentition Thyro-Mental Finger Breadths: 3 Mouth Opening Finger Breadths: 3 ROM/Head Extension: Full Lungs: Clear to Auscultation, Normal Respiratory Effort Cardiovascular: Regular Rate, Regular Rhythm - Lab Values: Laboratory Last Values WBC 7.87 K/mm3 (3.98-10.04) 04/24/19 05:37 RBC 4.23 M/mm3 (3.98-5.22) 04/24/19 05:37 Hgb 11.8 gm/dl (11.2-15.7) D 04/24/19 05:37 Hct 36.9 % (34.1-44.9) 04/24/19 05:37 MCV 87.2 fl (79.4-94.8) 04/24/19 05:37 MCH 27.9 pg (25.6-32.2) 04/24/19 05:37 MCHC 32.0 g/dl (32.2-35.5) L 04/24/19 05:37 RDW Std Deviation 43.9 fL (36.4-46.3) 04/24/19 05:37 Plt Count 255 K/mm3 (182-369) 04/24/19 05:37 MPV 9.6 fl (9.4-12.3) 04/24/19 05:37 Neut % (Auto) 64.0 % (34.0-71.1) 04/24/19 05:37 Lymph % (Auto) 26.0 % (19.3-51.7) 04/24/19 05:37 [place] % (Auto) 7.1 % (4.7-12.5) 04/24/19 05:37 Eos % (Auto) 2.2 (0.7-5.8) 04/24/19 05:37 Baso % (Auto) 0.3 % (0.1-1.2) 04/24/19 05:37 Neut # (Auto) 5.04 K/mm3 (1.56-6.13) 04/24/19 05:37 Lymph # (Auto) 2.05 K/mm3 (1.18-3.74) 04/24/19 05:37 [place] # (Auto) 0.56 K/mm3 (0.24-0.36) H 04/24/19 05:37 Eos # (Auto) 0.17 K/mm3 (0.04-0.36) 04/24/19 05:37 Baso # (Auto) 0.02 K/mm3 (0.01-0.08) 04/24/19 05:37 - Allergies Allergies/Adverse Reactions: Allergies Allergy/AdvReac Type Severity Reaction Status Date / Time No Known Allergies Allergy Verified 11/05/16 19:31 - Acknowledgements Anesthesia Type Planned: Spinal Pt an Appropriate Candidate for the Planned Anesthesia: Yes Alternatives and Risks of Anesthesia Discussed w Pt/Guardian: Yes Pt/Guardian Understands and Agrees with Anesthesia Plan: Yes PreAnesthesia Questionnaire Other HEENT History: wears glasses 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 - Past Surgical History HEENT Surgical History: Reports: Oral Surgery, Tonsillectomy Female Surgical History: Reports: Section, D&C - SUBSTANCE USE Smoking Status *Q: Never Smoker Tobacco Use Within Last Twelve Months: No Second Hand Smoke Exposure: No Recreational Drug Use History: No - HOME MEDS Home Medications: Home Meds Pnv No.95/Ferrous Fum/Folic AC [ Tablet] 1 tab PO DAILY 01/24/17 [ History] Acetaminophen/oxyCODONE [Percocet 325-5 MG] 1 - 2 tab PO Q4H PRN #30 tablet [Rx] Docusate Sodium [Colace] 100 mg PO Q12H PRN cap 01/27/17 [Rx] Ibuprofen [IJD: Ibuprofen] 600 mg PO Q6H PRN tablet 01/27/17 [Rx] Lanolin [Lansinoh HPA] 1 applic TOP ASDIRECTED PRN tube 01/27/17 [Rx] - CURRENT (IN HOUSE) MEDS Current Meds: Current Medications Diphenhydramine HCl (Benadryl) 25 mg IVPUSH Q6H PRN PRN Reason: Pruritis Fentanyl (Sublimaze) 50 mcg IVPUSH Q5M PRN PRN Reason: Pain Lactated Ringer's (Ringers, Lactated) 1,000 mls @ 125 mls/hr IV ASDIRECTED SKIP Last Admin: 04/24/19 06:46 Dose: 125 mls/hr Oxytocin/Lactated Ringer's (Pitocin In Lr 10 Units/1,000 Ml) 10 unit in 1,000 mls @ 100 mls/hr IV ASDIRECTED SKIP; Protocol Ondansetron HCl (Zofran) 4 mg IVPUSH ONETIME PRN PRN Reason: Nausea/Vomiting Sodium Chloride (Saline Flush) 10 ml FLUSH ASDIRECTED PRN PRN Reason: Keep Vein Open Discontinued Medications Bupivacaine HCl (Marcaine 0.5%) Confirm Administered Dose 30 ml .ROUTE .STK-MED ONE Stop: 04/24/19 07:15 Cefazolin Sodium (Ancef) Confirm Administered Dose 2 gm .ROUTE .STK-MED ONE Stop: 04/24/19 07:17 Citric Acid/Sodium Citrate (Bicitra Solution) 30 ml PO ONETIME ONE Stop: 04/24/19 06:01 Last Admin: 04/24/19 06:36 Dose: 30 ml Cefazolin Sodium/Dextrose 2 gm (/ Premix) 50 mls @ 100 mls/hr IV ONETIME ONE Stop: 04/24/19 06:59 Lactated Ringer's (Ringers, Lactated) Confirm Administered Dose 2,000 mls @ as directed .ROUTE .STK-MED ONE Stop: 04/24/19 07:17 Ketorolac Tromethamine (Toradol) Confirm Administered Dose 30 mg .ROUTE .STK- MED ONE Stop: 04/24/19 07:17 Metoclopramide HCl (Reglan) 10 mg IVPUSH ONETIME ONE Stop: 04/24/19 06:01 Last Admin: 04/24/19 06:37 Dose: 10 mg Miscellaneous Medication (Phenylephrine 1 Mg/10 Ml-Ns) Confirm Administered Dose 1 mg IV .STK-MED ONE Stop: 04/24/19 07:53 Morphine Sulfate (Duramorph Pf) Confirm Administered Dose 1 mg .ROUTE .STK-MED ONE Stop: 04/24/19 07:18 Ondansetron HCl (Zofran) Confirm Administered Dose 4 mg .ROUTE .STK-MED ONE Stop: 04/24/19 07:17 Oxytocin (Pitocin) Confirm Administered Dose 20 unit .ROUTE .STK-MED ONE Stop: 04/24/19 07:17
--- NOTE | 2019-04-24 09:01 | PCM.OPNOTE ---
- General Post-Op/Procedure Note Date of Surgery/Procedure: 04/24/19 Operative Procedure(s): repeat section Findings: Normal pelvic anatomy Pre Op Diagnosis: prior desires repeat Post-Op Diagnosis: Same Anesthesia Technique: Spinal Primary Surgeon: Joselyn Hutchison Anesthesia Provider: Kristy Silver Animation Director: Bri Kowalski Fluid Replacement, Intraop: 2,000 Output, Urine Amount: 100 EBL in mLs: 600 Complications: None Condition: Good Free Text/Narrative:: Intake & Output 04/23/19 04/24/19 04/24/19 22:59 06:59 14:59 Intake Total 1000 Balance 1000 The patient was taken to the operating room where spinal anesthesia was dosed to surgical levels without difficulty. The patient was prepped and draped in the usual sterile fashion in the dorsal supine position with a leftward tilt. A Pfannenstiel skin incision was made with the scalpel and carried through to the underlying layer of fascia. The fascia was incised in the midline and extended laterally using Escalona scissors. Moon clamps were used to elevate the superior aspect of the fascial incision, which was elevated, and the underlying rectus muscles were dissected off bluntly and using Escalona scissors. Attention was then turned to the inferior aspect of the fascial incision, which in similar fashion was grasped with Moon clamps, elevated, and the underlying rectus muscles were dissected off bluntly and using the escalona. The rectus muscles were dissected in the midline. The peritoneum was entered bluntly; this incision was extended superiorly and inferiorly with good visualization of the bladder. The bladder blade was inserted. The vesicouterine peritoneum was identified and entered sharply using Metzenbaum scissors. This incision was extended laterally and the bladder flap was created digitally. The bladder blade was reinserted. The lower uterine segment was incised in a transverse fashion using the scalpel and with digital traction. Clear fluid was noted. The infant was subsequently delivered by flexing the head to the incision. Body and shoulders followed without difficulty. The cord was clamped and cut. The was subsequently handed to the awaiting global marketing specialist whose presence had been requested.. The placenta was delivered spontaneously intact with a three-vessel cord noted. The uterus was exteriorized and cleared of all clots and debris. The uterine incision was repaired in 1 layer with 3 additional figure of 8 stitches using 0 monocryl. Hemostasis was visualized. Hemostasis was visualized bilaterally. The uterus was returned to the abdomen. The uterine incision was reexamined and it was noted to be hemostatic. The pelvis was copiously irrigated. The fascia was closed with 1 PDS suture, and the skin was closed with 3-0 monocryl. Sponge, lap, and instrument counts were correct x2. The patient was stable at the completion of the procedure and was subsequently transferred to the recovery room in stable condition.
[2019-04-24] MEDS ORDERED: Dextrose 5%-Lactated Ringers 1,000 ML IV SCH (09:50)
[2019-04-24] MEDS ORDERED: Naloxone 0.4 MG/ML SDV IVPUSH PRN (09:50)
[2019-04-24] MEDS ORDERED: ePHEDrine 50 MG/ML SDV IVPUSH PRN (09:50)
[2019-04-24] MEDS ORDERED: Acetaminophen/oxyCODONE 325-5 MG Tab PO PRN (13:28)
[2019-04-24] MEDS: Acetaminophen/oxyCODONE 325-5 MG Tab PO PRN ×2 (13:49→21:17)
[2019-04-24] MEDS: Ibuprofen 600 MG Tab PO PRN (18:35)
[2019-04-25] MEDS: Ibuprofen 600 MG Tab PO PRN ×3 (00:38→15:23)
[2019-04-25] MEDS: Acetaminophen/oxyCODONE 325-5 MG Tab PO PRN ×3 (00:39→11:55)
[2019-04-25] MEDS: Simethicone 80 MG Tab.Chew PO PRN ×2 (00:53→08:01)
[2019-04-25 07:55] VITALS: BP 89/54; PULSE 68
--- NOTE | 2019-04-25 09:57 | PCM48HPAN ---
Post Anesthesia Note - EVALUATION WITHIN 48HRS OF ANESTHETIC Vital Signs in Normal Range: Yes Patient Participated in Evaluation: Yes Respiratory Function Stable: Yes Airway Patent: Yes Cardiovascular Function Stable: Yes Hydration Status Stable: Yes Pain Control Satisfactory: Yes Nausea and Vomiting Control Satisfactory: Yes Mental Status Recovered: Yes Vital Signs: Last Vital Signs Temp 37.1 C 04/25/19 07:52 Pulse 68 04/25/19 07:52 Resp 16 04/25/19 07:52 BP 89/54 L 04/25/19 07:52 Pulse Ox 99 04/25/19 07:52 - COMMENTS/OBSERVATIONS Free Text/Narrative:: Patient continues to c/o right shoulder pain, warm K-pad noted, and patient states pain is tolerable and improves with medication.
--- NOTE | 2019-04-25 13:19 | PCM.DCSUM1 ---
Discharge Summary - Hospital Course Diagnosis: Stroke: No - Discharge Data Discharge Date: 04/25/19 Discharge Disposition: Home, Self-Care 01 Condition: Good - Referral to Home Health Primary Care Physician: Joselyn Hutchison MD - Patient Summary/Data Operative Procedure(s) Performed: repeat section - Patient Instructions Diet: Usual Diet as Tolerated Activity: No Strenuous Activities Driving: Do Not Drive Notify Provider of: Fever, Increased Pain, Swelling and Redness, Drainage, Nausea and/or Vomiting - Discharge Plan *PRESCRIPTION DRUG MONITORING PROGRAM REVIEWED*: No *COPY OF PRESCRIPTION DRUG MONITORING REPORT IN PATIENT JULES: No Home Medications: Home Meds Pnv No.95/Ferrous Fum/Folic AC [ Tablet] 1 tab PO DAILY 01/24/17 [ History] Acetaminophen/oxyCODONE [Percocet 325-5 MG] 1 - 2 tab PO Q4H PRN #30 tablet [Rx] Docusate Sodium [Colace] 100 mg PO Q12H PRN cap 01/27/17 [Rx] Ibuprofen [IJD: Ibuprofen] 600 mg PO Q6H PRN tablet 01/27/17 [Rx] Lanolin [Lansinoh HPA] 1 applic TOP ASDIRECTED PRN tube 01/27/17 [Rx] Referrals: Joselyn Hutchison MD [Primary Care Provider] - (See us when/if needed when back with baby for appt with Dr. Akhtar at 2-4 weeks) - Discharge Summary/Plan Comment DC Time >30 min.: No - General Info Date of Service: 04/25/19 Functional Status: Reports: Pain Controlled - Review of Systems General: Reports: No Symptoms HEENT: Reports: No Symptoms Pulmonary: Reports: No Symptoms Cardiovascular: Reports: No Symptoms Gastrointestinal: Reports: No Symptoms Genitourinary: Reports: No Symptoms Musculoskeletal: Reports: No Symptoms Skin: Reports: No Symptoms Neurological: Reports: No Symptoms Psychiatric: Reports: No Symptoms - Patient Data Vitals - Most Recent: Last Vital Signs Temp 37.1 C 04/25/19 07:52 Pulse 68 04/25/19 07:52 Resp 16 04/25/19 07:52 BP 89/54 L 04/25/19 07:52 Pulse Ox 99 04/25/19 07:52 Weight - Most Recent: 78.925 kg I&O - Last 24 hours: Intake & Output 04/24/19 04/25/19 04/25/19 22:59 06:59 14:59 Intake Total 200 300 Output Total 3400 2550 Balance -3200 -2550 300 Lab Results - Last 24 hrs: Laboratory Results - last 24 hr 04/24/19 04/25/19 Range/Units 05:37 05:50 WBC 11.98 H (3.98-10.04) K/mm3 RBC 3.61 L (3.98-5.22) M/mm3 Hgb 10.1 L D (11.2-15.7) gm/dl Hct 32.0 L (34.1-44.9) % MCV 88.6 (79.4-94.8) fl MCH 28.0 (25.6-32.2) pg MCHC 31.6 L (32.2-35.5) g/dl RDW Std Deviation 44.4 (36.4-46.3) fL Plt Count 218 (182-369) K/mm3 MPV 9.4 (9.4-12.3) fl Neut % (Auto) 79.8 H (34.0-71.1) % Lymph % (Auto) 11.5 L (19.3-51.7) % [place] % (Auto) 7.7 (4.7-12.5) % Eos % (Auto) 0.7 (0.7-5.8) Baso % (Auto) 0.1 (0.1-1.2) % Neut # (Auto) 9.57 H (1.56-6.13) K/mm3 Lymph # (Auto) 1.38 (1.18-3.74) K/mm3 [place] # (Auto) 0.92 H (0.24-0.36) K/mm3 Eos # (Auto) 0.08 (0.04-0.36) K/mm3 Baso # (Auto) 0.01 (0.01-0.08) K/mm3 RPR Non-reactive (NONREACTIVE) Med Orders - Current: Current Medications Diphenhydramine HCl (Benadryl) 25 mg IVPUSH Q6H PRN PRN Reason: Itching or Nausea Ephedrine Sulfate (Ephedrine Sulfate) 5 mg IVPUSH SEECOMMENT PRN PRN Reason: Other Ibuprofen (Motrin) 600 mg PO Q6H PRN PRN Reason: Pain Last Admin: 04/25/19 09:17 Dose: 600 mg Naloxone HCl (Narcan) 0.1 mg IVPUSH SEECOMMENT PRN PRN Reason: Respiratory Depression Oxycodone/Acetaminophen (Percocet 325-5 Mg) 1 tab PO Q4H PRN PRN Reason: Pain (moderate 4-6) Oxycodone/Acetaminophen (Percocet 325-5 Mg) 2 tab PO Q4H PRN PRN Reason: Pain (severe 7-10) Last Admin: 04/25/19 11:55 Dose: 2 tab Simethicone (Simethicone) 160 mg PO Q6H PRN PRN Reason: gas pain Last Admin: 04/25/19 08:01 Dose: 160 mg Discontinued Medications Bupivacaine HCl (Marcaine 0.5%) Confirm Administered Dose 30 ml .ROUTE .STK-MED ONE Stop: 04/24/19 07:15 Last Admin: 04/24/19 08:02 Dose: 20 ml Cefazolin Sodium (Ancef) Confirm Administered Dose 2 gm .ROUTE .STK-MED ONE Stop: 04/24/19 07:17 Citric Acid/Sodium Citrate (Bicitra Solution) 30 ml PO ONETIME ONE Stop: 04/24/19 06:01 Last Admin: 04/24/19 06:36 Dose: 30 ml Diphenhydramine HCl (Benadryl) 25 mg IVPUSH Q6H PRN PRN Reason: Pruritis Fentanyl (Sublimaze) 50 mcg IVPUSH Q5M PRN PRN Reason: Pain Cefazolin Sodium/Dextrose 2 gm (/ Premix) 50 mls @ 100 mls/hr IV ONETIME ONE Stop: 04/24/19 06:59 Last Admin: 04/24/19 09:53 Dose: Not Given Lactated Ringer's (Ringers, Lactated) 1,000 mls @ 125 mls/hr IV ASDIRECTED SKIP Last Admin: 04/24/19 06:46 Dose: 125 mls/hr Oxytocin/Lactated Ringer's (Pitocin In Lr 10 Units/1,000 Ml) 10 unit in 1,000 mls @ 100 mls/hr IV ASDIRECTED SKIP; Protocol Lactated Ringer's (Ringers, Lactated) Confirm Administered Dose 2,000 mls @ as directed .ROUTE .STK-MED ONE Stop: 04/24/19 07:17 Dextrose/Lactated Ringer's (Dextrose 5%-Lactated Ringers) 1,000 mls @ 125 mls/ hr IV ASDIRECTED SKIP Stop: 04/24/19 17:49 Last Admin: 04/24/19 10:04 Dose: 125 mls/hr Ketorolac Tromethamine (Toradol) Confirm Administered Dose 30 mg .ROUTE .STK- MED ONE Stop: 04/24/19 07:17 Metoclopramide HCl (Reglan) 10 mg IVPUSH ONETIME ONE Stop: 04/24/19 06:01 Last Admin: 04/24/19 06:37 Dose: 10 mg Miscellaneous Medication (Phenylephrine 1 Mg/10 Ml-Ns) Confirm Administered Dose 1 mg IV .STK-MED ONE Stop: 04/24/19 07:53 Morphine Sulfate (Duramorph Pf) Confirm Administered Dose 1 mg .ROUTE .STK-MED ONE Stop: 04/24/19 07:18 Ondansetron HCl (Zofran) Confirm Administered Dose 4 mg .ROUTE .STK-MED ONE Stop: 04/24/19 07:17 Ondansetron HCl (Zofran) 4 mg IVPUSH ONETIME PRN PRN Reason: Nausea/Vomiting Oxytocin (Pitocin) Confirm Administered Dose 20 unit .ROUTE .STK-MED ONE Stop: 04/24/19 07:17 Sodium Chloride (Saline Flush) 10 ml FLUSH ASDIRECTED PRN PRN Reason: Keep Vein Open - Exam General: Reports: Alert, Oriented HEENT: Reports: Pupils Equal, Pupils Reactive, EOMI, Mucous Membr. Moist/[place] Neck: Reports: Supple Lungs: Reports: Clear to Auscultation, Normal Respiratory Effort Cardiovascular: Reports: Regular Rate, Regular Rhythm GI/Abdominal Exam: Normal Bowel Sounds, Soft, Non-Tender, No Organomegaly, No Distention, No Abnormal Bruit, No Mass, Pelvis Stable Back Exam: Reports: Normal Inspection, Full Range of Motion Extremities: Normal Inspection, Normal Range of Motion, Non-Tender, No Pedal Edema, Normal Capillary Refill Skin: Reports: Warm, Dry, Intact Wound/Incisions: Reports: Healing Well Neurological: Reports: No New Focal Deficit Psy/Mental Status: Reports: Alert, Normal Affect, Normal Mood
== END 2019-04-25 15:30 | disposition home or self-care (01) | DRG 540 ==
LOC: JD.OB 05:14
PROVIDERS: ADMIT Obstetrics & Gynecology; ATTEND Obstetrics & Gynecology
PROC: 10D00Z1 Extraction of Products of Conception, Low, Open Approach (ICD-10-PCS; principal; 2019-04-24)
DX: O34.211 Maternal care for low transverse scar from previous cesarean delivery (principal); Z3A.38 38 weeks gestation of pregnancy; Z37.0 Single live birth; Z90.89 Acquired absence of other organs; Z91.09 Other allergy status, other than to drugs and biological substances; Z79.899 Other long term (current) drug therapy
CPT/HCPCS: 01961; 36415; 59025; 85025; 86592; 86850; 86900; 86901; 94762; A9270-GY; J0690; J1885; J2274; J2370; J2405; J2590; J2765; J3490; J7120; J7121